=== PATIENT | male | born 1990 | race Caucasian/White ===

== ENCOUNTER 2016-12-28 03:30 | Emergency (ER) | payer OTHER ==
[~2016-12-28] VITALS: Ht 170.2 cm; Wt 71.1 kg
[2016-12-28 03:34] VITALS: Ht 170.2 cm; Wt 71.1 kg
[2016-12-28] MEDS ORDERED: LIDOCAINE/MYLANTA 40 ML BTL PO ONE (04:00)
--- NOTE | 2016-12-28 04:03 | ERD ---
ER Documentation Chief Complaint Chief Complaint chest/back pain x 1 day HPI 26-year-old male presents here to emergency department for complaints of burning sensation in the chest acid reflux that started tonight, patient has been having on and off symptoms of gastritis, has also had symptoms of chest pain before and was already previously seen by floor coverer apprentice. Patient was given omeprazole before to help with symptoms, has not been taking it as prescribed, only took 1 dose tonight. Patient denies any nausea or vomiting. Patient denies any fever chills. Patient denies any dyspnea on exertion or dizzy on lying down. ROS All systems reviewed and are negative except as per history of present illness. Medications Home Meds No Active Prescriptions or Reported Meds Allergies Allergies: Coded Allergies: No Known Allergy (Unverified , 12/28/16) PMhx/Soc Medical and Surgical Hx: pt denies Surgical Hx Hx Miscellaneous Medical Probl: Yes (GERD) Hx Alcohol Use: No Hx Substance Use: Yes (THC) Hx Tobacco Use: No Smoking Status: Never smoker FmHx Family History: No coronary disease, No diabetes, No other Physical Exam Vitals Vital Signs Date Time Temp Pulse Resp B/P Pulse Ox O2 Delivery O2 Flow Rate FiO2 12/28/16 03:34 98.4 91 20 137/87 99 Physical Exam GENERAL: The patient is well developed and appropriate for usual state of health, in no apparent distress. CHEST: Clear to auscultation bilaterally. There are no rales, wheezes or rhonchi. HEART: Regular rate and rhythm. No murmurs, clicks, rubs or gallops. No S3 or S4. ABDOMEN: Soft, nontender and nondistended. Good bowel sounds. No rebound or guarding. No gross peritonitis. No gross organomegaly or masses. No Menjivar sign or McBurney point tenderness. BACK: No midline or flank tenderness. EXTREMITIES: Equal pulses bilaterally. There is no peripheral clubbing, cyanosis or edema. No focal swelling or erythema. Full range of motion. Grossly neurovascularly intact. NEURO: Alert and oriented. Cranial nerves 2-12 intact. Motor strength in all 4 extremities with 5/5 strength. Sensation grossly intact. Normal speech and gait. SKIN: There is no apparent rash or petechia. The skin is warm and dry. HEMATOLOGIC AND LYMPHATIC: There is no evidence of excessive bruising or lymphedema. No gross cervical, axillary, or inguinal lymphadenopathy. Results 24 hrs Current Medications Medications (Trade) Dose Ordered Sig/Pito Route PRN Reason Start Time Stop Time Status Last Admin Dose Admin Miscellaneous Medication (Gi Cocktail (2)) 40 ml ONCE ONCE PO 12/28/16 04:00 12/28/16 04:01 DC 12/28/16 04:03 GI cocktail was given here in the emergency department. EKG was done, read by me and is normal sinus rhythm at a rate of 69, normal axis , there is no ST changes or changes in the EKG that indicates any cardiac emergencies at this time. Patient's EKG was also reviewed by Dr. Hendrickson. Impression: no acute findings on EKG Procedures/MDM Medical Decision Making: Patient symptoms was likely is consistent with acid reflux disease and gastritis. There is low suspicion for cardiopulmonary emergencies at this time. Patient has low risk factors. EKG is normal, there is no changes in the EKG that indicates cardiac emergencies. There is low suspicion for aortic aneurysm, myocardial infarction, pneumothorax, pleural effusion, pulmonary embolism, or any other cardiopulmonary emergencies at this time. Prescription was given for Mylanta, ranitidine, was advised to follow-up with primary care doctor, possibly able do an EGD for further evaluation, patient was advised to return to emergency department for any worsening symptoms. Dispostion: Home. Stable Disclaimer: Inadvertent spelling and grammatical errors are likely due to EHR/ dictation software use and do not reflect on the overall quality of patient care. Also, please note that the electronic time recorded on this note does not necessarily reflect the actual time of the patient encounter. Another one just one patient Departure Diagnosis: Primary Impression: GERD (gastroesophageal reflux disease) Esophagitis presence: without esophagitis Qualified Code: K21.9 - Gastroesophageal reflux disease without esophagitis Condition: Stable Patient Instructions: Gastroesophageal Reflux Disease (GERD) Additional Instructions: Prescription was given for Mylanta, ranitidine, was advised to follow-up with primary care doctor, possibly able do an EGD for further evaluation, patient was advised to return to emergency department for any worsening symptoms. MARK REYES NP Dec 28, 2016 04:03
[2016-12-28] MEDS ORDERED: MAG-19 PO (04:04)
[2016-12-28] MEDS ORDERED: RANI150T9 PO (04:04)
== END 2016-12-28 04:30 | disposition home or self-care (01) ==
LOC: FTE 03:30
DX: K21.9 Gastro-esophageal reflux disease without esophagitis (principal)
CPT/HCPCS: 93005; Z7610

== ENCOUNTER 2017-04-13 15:45 | Emergency (ER) | END 2017-04-13 20:42 | disposition home or self-care (01) ==

== ENCOUNTER 2017-08-03 14:35 | Emergency (ER) | END 2017-08-03 17:04 | disposition home or self-care (01) ==